=== PATIENT | female | born 1970 | race Caucasian/White ===

== ENCOUNTER 2018-06-20 01:56 | Emergency (ER) | payer BC, OTHER ==
[~2018-06-20] VITALS: Ht 154.9 cm; Wt 80.6 kg
[2018-06-20] MEDS ORDERED: NORT75CA PO (02:24)
--- NOTE | 2018-06-20 02:24 | NUR ---
PT PRESENTED WITH C/O CHEST PAIN RADIATING DOWN ARM, UP NECK,THAT STARTED YESTERDAY AT [address], + NAUSEA, H/X ANXIETY. MONITORS APPLIED, SIDERAILS UP X2, CALL LIGHT WITHIN REACH. AWAITING ERP FOR EVAL AND ORDERS
[2018-06-20] MEDS ORDERED: ASPIRIN 81 MG TABLET EC ONE (02:42)
--- NOTE | 2018-06-20 02:44 | NUR ---
PT STATED SHE TOOK 2 ASPIRIN 325MG [facility].
[2018-06-20 02:54] LABS: BASOPHILS # (AUTO) 0.07 x10^3/uL (0-0.1); BASOPHILS % (AUTO) 1 % (0-1); EOSINOPHILS # (AUTO) 0.38 x10^3/uL (0-0.4); EOSINOPHILS % (AUTO) 3 % (1-7); LYMPHOCYTES # (AUTO) 3.37 x10^3/uL (1-3.4); LYMPHOCYTES % (AUTO) 30 % (22-44); MD NO; MEAN CORPUSCULAR HEMOGLOBIN 33.3 pg (27.0-34.8); MEAN CORPUSCULAR HGB CONC 35.1 g/dL (32.4-35.8); MEAN PLATELET VOLUME 9.1 fL (7.4-10.4); MONOCYTES # (AUTO) 0.59 x10^3/uL (0.2-0.8); MONOCYTES % (AUTO) 5 % (2-9); NEUTROPHILS # (AUTO) 6.96 x10^3/uL (1.8-6.8); NEUTROPHILS % (AUTO) 61 % (42-75); PLATELET COUNT 287 x10^3/uL (130-400); RED BLOOD COUNT 3.82 x10^6/uL (3.82-5.3); RED CELL DISTRIBUTION WIDTH 12.8 % (9.6-15.2)
[2018-06-20] MEDS ORDERED: ASPIRIN 81 MG TABLET CHEW PO ONE (03:00)
[2018-06-20 03:03] LABS: ALBUMIN 3.8 g/dL (3.4-5.0); ANION GAP 9 mmol/L (5-15); CALCIUM 8.5 mg/dL (8.5-10.1); CHLORIDE 106 mmol/L (98-107); CREATININE 0.91 mg/dL (0.55-1.02)
[2018-06-20 03:06] LABS: TROPONIN I < 0.015 ng/mL (0.000-0.045)
--- NOTE | 2018-06-20 04:29 | NUR ---
PT STATES THAT SHE IS FEELING A LOT BETTER AND THAT CP HAS SUBSIDED. PT PROVIDED D/C SUMMARY AND VERBALIZES UNDERSTANDING OF [facility] AND F/U INFORMATION. PT DENIES ANY OTHER NEEDS PERTAINING THIS VISIT. PT AMBULATED TO REGISTRATION DESK WITH STEADY GAIT FOR D/C HOME.
[2018-06-20 04:32] VITALS: BP 128/77
== END 2018-06-20 04:35 | disposition home or self-care (01) ==
LOC: ED 04:10
DX: R07.89 Other chest pain (principal)
CPT/HCPCS: 36415; 71045; 80048; 82040; 84484; 85025; 93005; 99284